=== PATIENT | male | born 1965 | race Native Hawaiian/Other Pacific Islander ===

== ENCOUNTER 2019-02-12 08:54 | Outpatient (CLI) | payer OTHER ==
[~2019-02-12 08:54] MED LIST: ASA LOW DOSE81 MG PO; CLOP75TA2 PO; LISI10TA11 PO; SIMV40TA57 PO
== END 2019-02-12 19:31 | disposition home or self-care (01) ==
LOC: LABW 08:54
PROVIDERS: Nurse Practitioner Adult Health
DX: I25.10 Atherosclerotic heart disease of native coronary artery without angina pectoris (principal); E78.2 Mixed hyperlipidemia; Z79.899 Other long term (current) drug therapy
CPT/HCPCS: 36415; 80061; 80076

== ENCOUNTER 2020-09-11 14:43 | Outpatient (CLI) | payer OTHER | END 2020-09-11 23:22 | disposition home or self-care (01) | LOC: RAD 14:43 | PROVIDERS: ATTEND Registered Nurse | DX: R10.84 Generalized abdominal pain (principal) ==